=== PATIENT | male | born 1945 | race Caucasian/White ===

== ENCOUNTER → 2017-01-15 | Outpatient (CLI) | payer MEDICARE ==
[~2017-01-15] VITALS: Ht 180.3 cm; Wt 85.7 kg
[2017-01-15 16:22] LABS: Basophils # (auto) 0 uL; Basophils % (auto) 0.6 % (0.0-2.0); Eosinophils # (auto) 0.1 uL; Hematocrit 44.2 % (41.0-53.0); Hemoglobin 15.1 g/dL (13.5-17.5); Lymphocytes # (auto) 1.3 uL; Lymphocytes % (auto) 15.1 % (10.0-50.0); Mean Corpuscular Hemoglobin 31.2 pg (28.0-32.0); Mean Corpuscular Hgb Conc. 34.1 g/dL (32.0-36.0); Mean Corpuscular Volume 91.5 fL (80.0-100.0); Monocytes # (auto) 0.6 uL; Monocytes % (auto) 7.4 % (0.0-12.0); Neutrophils # (auto) 6.3 uL; Neutrophils % (auto) 75.9 % (37.0-80.0); Platelet Count (auto) 237 10^3/uL (140-450); Red Blood Cells 4.83 10^6/uL (4.5-5.90); Red Cell Distribution Width 13.4 % (11.8-14.3); White Blood Cell 8.4 10^3/uL (4.4-10.8)
[2017-01-15 16:27] LABS: BUN/Creatinine Ratio 18.6; Calcium 9.1 mg/dL (8.5-10.1)
[2017-01-15 16:34] LABS: INR 0.95 (0.9-1.15); Partial Thromboplastin Time 26.8 sec (22.64-33.71); Prothrombin Time 10.3 sec (9.37-12.3)
== END | disposition home or self-care (01) ==
LOC: Rad HDHVI 14:22
PROVIDERS: ATTEND Internal Medicine Cardiovascular Disease
DX: Z01.818 Encounter for other preprocedural examination (principal); J44.9 Chronic obstructive pulmonary disease, unspecified; I10 Essential (primary) hypertension; D64.9 Anemia, unspecified; R79.1 Abnormal coagulation profile; Z79.899 Other long term (current) drug therapy
CPT/HCPCS: 36415; 78452; 80048; 85025; 85610; 85730; 93017; 96374; A9500

== ENCOUNTER → 2018-08-27 | Outpatient (CLI) | payer MEDICARE ==
[~2018-08-27] VITALS: Ht 180.3 cm; Wt 84.4 kg
== END | disposition home or self-care (01) ==
LOC: Rad HDHVI 13:19
PROVIDERS: ATTEND Internal Medicine Cardiovascular Disease
DX: I11.0 Hypertensive heart disease with heart failure (principal); I50.33 Acute on chronic diastolic (congestive) heart failure; E78.5 Hyperlipidemia, unspecified; K21.9 Gastro-esophageal reflux disease without esophagitis; R07.89 Other chest pain
CPT/HCPCS: 78452; 93017; 96374; A9500

== ENCOUNTER → 2020-06-21 | Outpatient (CLI) | payer MEDICARE ==
[~2020-06-21] MED LIST: IOPAMIDOL 76 % (ISOVUE-370) 100ML BTL IV ONE
[2020-06-21 08:03] VITALS: BP 124/79
[2020-06-21 08:44] LABS: Basophils # (auto) 0 10 ^3/uL (0-0.2); Basophils % (auto) 0.6 % (0.0-2.0); Eosinophils # (auto) 0.1 10 ^3/uL (0-0.8); Eosinophils % (auto) 1.5 % (0.0-7.0); Hematocrit 42.5 % (41.0-53.0); Hemoglobin 14.8 g/dL (13.5-17.5); Lymphocytes # (auto) 0.9 10 ^3/uL (0.4-5.4); Lymphocytes % (auto) 16.2 % (10.0-50.0); Mean Corpuscular Hemoglobin 31.6 pg (28.0-32.0); Mean Corpuscular Hgb Conc. 34.8 g/dL (32.0-36.0); Mean Corpuscular Volume 90.7 fL (80.0-100.0); Monocytes # (auto) 0.4 10 ^3/uL (0-1.3); Monocytes % (auto) 7.2 % (0.0-12.0); Neutrophils # (auto) 4.3 10 ^3/uL (1.6-8.6); Neutrophils % (auto) 74.5 % (37.0-80.0); Nucleated Red Blood Cells % 0.1 %; Platelet Count (auto) 222 10^3/uL (140-450); Red Blood Cells 4.69 10^6/uL (4.5-5.90); Red Cell Distribution Width 13.2 % (11.8-14.3); White Blood Cell 5.8 10^3/uL (4.4-10.8)
[2020-06-21 09:01] LABS: Calcium 9.4 mg/dL (8.5-10.1); Potassium 4.1 mmol/L (3.5-5.1)
[2020-06-21 09:05] LABS: BUN/Creatinine Ratio 23.7; Bilirubin, Total 0.6 mg/dL (0.2-1.0); Total Protein 7.3 g/dL (6.4-8.2)
[2020-06-21 09:11] LABS: Prostate Specific Antigen 1.43 ng/mL (0.0-4.0)
[2020-06-21 09:12] LABS: Free T4 (Free Thyroxine) 1.08 ng/dL (0.89-1.76)
[2020-06-21 09:46] VITALS: BP 130/78
[2020-06-21 11:51] LABS: Cholesterol 189 mg/dL (< 200); HDL Cholesterol 54 mg/dL (40-59); LDL Cholesterol 116 mg/dL (< 100); Triglycerides 141 mg/dL (< 150)
[2020-06-21 11:59] LABS: Urine Blood Negative /uL (Negative); Urine Specific Gravity 1.044 (1.001-1.035)
== END | disposition home or self-care (01) ==
LOC: Rad HDHVI 08:00
PROVIDERS: ATTEND Internal Medicine Cardiovascular Disease
DX: K44.9 Diaphragmatic hernia without obstruction or gangrene (principal); M47.814 Spondylosis without myelopathy or radiculopathy, thoracic region; D51.3 Other dietary vitamin B12 deficiency anemia; C61 Malignant neoplasm of prostate; R30.0 Dysuria; R53.1 Weakness; R00.2 Palpitations; I10 Essential (primary) hypertension; E55.9 Vitamin D deficiency, unspecified; E11.9 Type 2 diabetes mellitus without complications; D64.9 Anemia, unspecified
CPT/HCPCS: 36415; 71260; 80053; 80061; 81003; 82306; 82607; 83036; 84153; 84403; 84439; 84443; 85025; G0463; Q9967

== ENCOUNTER → 2020-06-30 | Outpatient (CLI) | payer MEDICARE | END | disposition home or self-care (01) | LOC: Rad HDHVI 09:01 | PROVIDERS: ATTEND Internal Medicine Cardiovascular Disease | DX: R00.2 Palpitations (principal); R06.02 Shortness of breath | CPT/HCPCS: 93306 ==

== ENCOUNTER → 2020-07-06 | Outpatient (CLI) | payer MEDICARE ==
[~2020-07-06] VITALS: Ht 180.3 cm; Wt 83.9 kg
== END | disposition home or self-care (01) ==
LOC: Rad HDHVI 08:41
PROVIDERS: ATTEND Internal Medicine Cardiovascular Disease
DX: I11.0 Hypertensive heart disease with heart failure (principal); I50.33 Acute on chronic diastolic (congestive) heart failure; E78.5 Hyperlipidemia, unspecified
CPT/HCPCS: 78452; 93017; 96374; A9500

== ENCOUNTER → 2021-10-31 | Outpatient (CLI) | payer MEDICARE ==
[~2021-10-31] VITALS: Ht 180.3 cm; Wt 83.9 kg
== END | disposition home or self-care (01) ==
LOC: Rad HDHVI 08:07
PROVIDERS: ATTEND Internal Medicine Cardiovascular Disease
DX: I34.0 Nonrheumatic mitral (valve) insufficiency (principal); E78.00 Pure hypercholesterolemia, unspecified; I11.0 Hypertensive heart disease with heart failure; I50.43 Acute on chronic combined systolic (congestive) and diastolic (congestive) heart failure; E78.5 Hyperlipidemia, unspecified
CPT/HCPCS: 78452; 93017; 93306; 96374; A9500

== ENCOUNTER → 2024-01-07 | Outpatient (CLI) | payer MEDICARE | END | disposition home or self-care (01) | LOC: Rad HDHVI 08:43 | PROVIDERS: ATTEND Internal Medicine Cardiovascular Disease | DX: I10 Essential (primary) hypertension (principal) | CPT/HCPCS: 93306 ==

== ENCOUNTER → 2024-01-26 | Outpatient (CLI) | payer MEDICARE ==
[~2024-01-26] VITALS: Ht 180.3 cm; Wt 84.8 kg
== END | disposition home or self-care (01) ==
LOC: Rad HDHVI 08:04
PROVIDERS: ATTEND Internal Medicine Cardiovascular Disease
DX: Z13.6 Encounter for screening for cardiovascular disorders (principal); I49.3 Ventricular premature depolarization; I49.1 Atrial premature depolarization; C61 Malignant neoplasm of prostate; I11.0 Hypertensive heart disease with heart failure; I50.23 Acute on chronic systolic (congestive) heart failure; E78.5 Hyperlipidemia, unspecified; R06.00 Dyspnea, unspecified
CPT/HCPCS: 78452; 93017; 96374; A9500